=== PATIENT | female | born 1965 | race Caucasian/White ===

== ENCOUNTER 2018-03-12 02:29 | Emergency (ER) | payer MEDICARE ==
[2018-03-12 02:33] VITALS: BP 132/69; PULSE 74; O2SAT 96
[2018-03-12] MEDS ORDERED: THIAMINE 200 MG/2 ML IV ONE (02:39)
[2018-03-12] MEDS ORDERED: Sodium Chloride 0.9% 1000 ML 1,000 ML IV SCH (02:45)
--- NOTE | 2018-03-12 02:46 | ERPHSYRPT ---
- History of Present Illness Time Seen by Provider: 03/12/18 02:40 Source: patient Exam Limitations: no limitations Patient Subjective Stated Complaint: fell and injured right knee, had knee replacement surgery 8 months ago Triage Nursing Assessment: Pt fell at home and landed on her right knee, swollen and bruised, pt has been drinking, hx of bilateral knee replacements, smokes while on oxygen, pulses normal, vitals wnl, rates pain 10/10 Physician History: He 3-year-old white female with history of atherosclerotic coronary artery disease, ID, asthma, bronchitis, COPD, hypothyroidism who has had bilateral knee replacement. She is brought by medics with complaint of right knee pain for 2 hours. Patient states she got up to change her depends and she fell landing on her right knee. Patient is complaining of pain and swelling of her right knee. Patient does admit to drinking 2-1/2 beers tonight. Past medical history includes out of him myocardial infarction, asthma, bronchitis, COPD, hypothyroidism, arthritis, fractures, osteoarthritis, fracture right ankle, cardiac catheter, cardiac stent , orthopedic surgery, right ankle surgery back surgery bilateral knee surgery right ovary and most of the left ovary removed . Social history includes tobacco use and alcohol use. Patient denies illicit drug use. Timing/Duration: today (2 hours prior to arrival) Severity: moderate Modifying Factors: Improves With: nothing Associated Symptoms: No nausea, No vomiting, No abdominal pain, No shortness of breath, No heartburn, No diaphoresis, No cough, No chills, No chest pain, No fever, No headaches, No loss of appetite, No malaise, No rash, No syncope, No seizure, No weakness Allergies/Adverse Reactions: Penicillins Allergy (Verified 03/12/18 02:40) tetanus immune globulin Allergy (Verified 03/12/18 02:40) Home Medications: Gabapentin [Neurontin] 800 mg PO TID 08/04/14 [History] Metoclopramide HCl [Reglan] 10 mg PO TID 08/04/14 [History] Paroxetine HCl [Paxil] 40 mg PO HS 08/04/14 [History] Albuterol Sulfate [Proair Hfa] 8.5 gm IH Q4HPRN PRN 09/22/15 [History] Atenolol 50 mg PO BID 09/22/15 [History] Isosorbide Mononitrate 30 mg [Imdur 30 MG] 60 mg PO DAILY 09/22/15 [History ] Levothyroxine Sodium 75 Mcg [Synthroid 75 Mcg] 75 mcg PO DAILY 09/22/15 [ History] Spironolactone 25 mg [Aldactone 25 MG] 25 mg PO BID 09/22/15 [History] Trazodone HCl [Oleptro ER] 150 mg PO HS 09/22/15 [History] Alendronate Sodium 70 mg [Fosamax 70 MG] 70 mg PO Q7D@0600 03/22/17 [ History] Cyanocobalamin/Folic AC/Vit B6 [Virt-Joseph Forte Tablet] 1 each PO DAILY [History] Furosemide 20 mg [Lasix 20 mg] 20 mg PO DAILY 03/22/17 [History] Omeprazole 20 MG [Prilosec 20 mg] 20 mg PO DAILY 03/22/17 [History] Paroxetine HCl 20 mg [Paxil 20 MG] 20 mg PO DAILY 03/22/17 [History] Simvastatin 40 mg [Zocor 40 mg] 40 mg PO HS 03/22/17 [History] Hydrocodone Bit/Acetaminophen [Laurel 7.5-325 Tablet] 1 each PO [id number] PRN 12/02 [History] Hx Tetanus, Diphtheria Vaccination/Date Given: Yes Hx Influenza Vaccination/Date Given: No Hx Pneumococcal Vaccination/Date Given: No - Review of Systems Constitutional: No Fever, No Chills Eyes: No Symptoms Ears, Nose, & Throat: No Symptoms Respiratory: No Cough, No Dyspnea Cardiac: No Chest Pain, No Edema, No Syncope Abdominal/Gastrointestinal: No Abdominal Pain, No Nausea, No Vomiting, No Diarrhea Genitourinary Symptoms: No Dysuria Musculoskeletal: Other (right knee pain and swell ing) Skin: No Rash Neurological: No Dizziness, No Focal Weakness, No Sensory Changes Psychological: No Symptoms Endocrine: No Symptoms All Other Systems: Reviewed and Negative - Past Medical History Pertinent Past Medical History: Yes Neurological History: No Pertinent History ENT History: No Pertinent History Cardiac History: Myocardial Infarction (ID) Respiratory History: Asthma, Bronchitis, COPD Endocrine Medical History: Hypothyroidism Musculoskeletal History: Arthritis, Fractures, Osteoarthritis GI Medical History: No Pertinent History History: No Pertinent History Psycho-Social History: No Pertinent History Female Reproductive Disorders: No Pertinent History Other Medical History: FX R ANKLE 20+ YEARS AGO - Past Surgical History Past Surgical History: Yes Neuro Surgical History: No Pertinent History Cardiac: Cardiac Catheterization, Cardiac Stent Respiratory: No Pertinent History Gastrointestinal: No Pertinent History Genitourinary: No Pertinent History Musculoskeletal: Orthopedic Surgery Female Surgical History: Other Other Surgical History: Right ankle surgery, Back surgery, right ovary removed and majority of left ovary, both knees replaced - Social History Smoking Status: Current every day smoker How long have you smoked: 36 years Exposure to second hand smoke: No Drug Use: none Patient Lives Alone: No - Nursing Vital Signs Nursing Vital Signs: Initial Vital Signs Temperature 98.2 F 03/12/18 02:30 Pulse Rate 74 03/12/18 02:30 Blood Pressure 132/69 03/12/18 02:30 O2 Sat by Pulse Oximetry 96 03/12/18 02:30 Pain Scale Pain Intensity 10 - Physical Exam General Appearance: other (Well-developed well-developed white female patient alert oriented 3 slow to speak) Eye Exam: PERRL/EOMI, eyes nml inspection Ears, Nose, Throat Exam: normal ENT inspection, TMs normal, pharynx normal, moist mucous membranes Neck Exam: normal inspection, non-tender, supple, full range of motion Respiratory Exam: normal breath sounds, lungs clear, No respiratory distress Cardiovascular Exam: regular rate/rhythm, normal heart sounds, normal peripheral pulses Gastrointestinal/Abdomen Exam: soft, normal bowel sounds, No tenderness, No mass Back Exam: normal inspection, normal range of motion, No CVA tenderness, No vertebral tenderness Extremity Exam: pelvis stable, other (Right knee with moderate amount of swelling posteriorly. Decreased range of motion right knee secondary to pain, right knee tender with palpation anteriorly.), No normal inspection, No normal range of motion SpO2: 96 Oxygen Delivery: Nasal Cannula - Course Nursing assessment & vital signs reviewed: Yes EKG Interpreted by Me: RATE (68 BPM), Sinus Rhythm, Other (ekg: sINUS RHYTHM axisSI/QIII pattern, 68 beats per minute, no acute ST or T wave changes noted) - Radiology Exams Right Knee X-ray Interpretation: Interpreted by me (transverse fracture right distal femur just superior to the knee, proximal fragment anterior to proximal portion of prosthetic portion of femur) Ordered Tests: Active Orders 24 hr Category Date Time Status Accucheck STAT Care 03/12/18 02:39 Active EKG-ER Only STAT Care 03/12/18 02:39 Active IV Insertion STAT Care 03/12/18 02:39 Active Splint STAT Care 03/12/18 03:11 Active KNEE (3 VIEWS) Stat Exams 03/12/18 02:40 Taken ACETAMINOPHEN Stat Lab 03/12/18 02:40 Completed AMYLASE Stat Lab 03/12/18 02:40 Completed BLOOD CULTURE Stat Lab 03/12/18 03:30 Received CBC W DIFF Stat Lab 03/12/18 02:40 Completed CMP Stat Lab 03/12/18 02:40 Completed ETHYL ALCOHOL Stat Lab 03/12/18 02:40 Completed Manual Differential NC Stat Lab 03/12/18 02:40 Completed PROTIME WITH INR Stat Lab 03/12/18 02:40 Completed PTT Stat Lab 03/12/18 02:40 Completed SALICYLATE Stat Lab 03/12/18 02:40 Completed Medication Summary Discontinued Medications Generic Name Dose Route Start Last Admin Trade Name Freq PRN Reason Stop Dose Admin Sodium Chloride 1,000 mls @ 100 mls/hr 03/12/18 02:45 03/12/18 03:22 Sodium Chloride 0.9% 1000 Ml IV 04/11/18 02:44 100 mls/hr .Q10H VANE Administration Potassium Chloride 100 mls @ 50 mls/hr 03/12/18 03:14 03/12/18 03:24 Potassium Chloride 20 Meq In Water 100ml IV 03/12/18 05:13 50 mls/hr STAT ONE Administration Potassium Chloride Confirm 03/12/18 03:19 Potassium Chloride 20 Meq In Water 100ml Administered 03/12/18 03:20 Dose 100 mls @ ud IV .STK-MED ONE Ceftriaxone Sodium/Dextrose 1 g in 50 mls @ 100 mls/hr 03/12/18 03:47 03:52 Rocephin 1 Gm-D5w 50 Ml Bag IV 03/12/18 04:16 100 mls/hr STAT STA Administration Ceftriaxone Sodium/Dextrose Confirm 03/12/18 03:47 Rocephin 1 Gm-D5w 50 Ml Bag Administered 03/12/18 03:48 Dose 1 g in 50 mls @ ud IV .STK-MED ONE Sodium Chloride Confirm 03/12/18 03:19 Sodium Chloride 0.9% 1000 Ml Administered 03/12/18 03:20 Dose 1,000 mls @ ud .ROUTE .STK-MED ONE Morphine Sulfate 4 mg 03/12/18 03:15 03/12/18 03:23 Morphine Sulfate 4 Mg Inj IV 03/12/18 03:16 4 mg STAT ONE Administration Morphine Sulfate Confirm 03/12/18 03:19 Morphine Sulfate 4 Mg Inj Administered 03/12/18 03:20 Dose 4 mg .ROUTE .STK-MED ONE Ondansetron HCl 4 mg 03/12/18 03:15 03/12/18 03:23 Zofran 4 Mg/2 Ml Vial IV 03/12/18 03:16 4 mg STAT ONE Administration Ondansetron HCl Confirm 03/12/18 03:18 Zofran 4 Mg/2 Ml Vial Administered 03/12/18 03:19 Dose 4 mg .ROUTE .STK-MED ONE Potassium Chloride 20 meq 03/12/18 03:47 03/12/18 03:51 Klor Con 10 Meq PO 03/12/18 03:48 20 meq STAT ONE Administration Potassium Chloride Confirm 03/12/18 03:47 Klor Con 10 Meq Administered 03/12/18 03:48 Dose 20 meq PO .STK-MED ONE Thiamine HCl 100 mg 03/12/18 02:39 03/12/18 03:23 Thiamine 200 Mg/2 Ml IV 03/12/18 02:40 100 mg STAT ONE Administration Thiamine HCl Confirm 03/12/18 03:18 Thiamine 200 Mg/2 Ml Administered 03/12/18 03:19 Dose 200 mg .ROUTE .STK-MED ONE Lab/Rad Data: Laboratory Result Diagrams 03/12/18 02:40 03/12/18 02:40 Laboratory Results 03/12/18 03/12/18 03/12/18 Range/Units 02:40 02:40 02:40 WBC 23.8 H (4.0-10.5) K/mm3 RBC 5.82 H (4.1-5.4) M/mm3 Hgb 17.4 H (12.0-16.0) gm/dl Hct 51.6 H (35-47) % MCV 88.7 (78-100) fl MCH 29.8 (26-32) pg MCHC 33.7 (32-36) g/dl RDW 13.7 (11.5-14.0) % Plt Count 352 (150-450) K/mm3 MPV 10.5 H (6-9.5) fl Absolute Granulocytes 20.41 H (1.4-6.9) Segmented Neutrophils 85 H (36.0-66.0) % Lymphocytes (Manual) 11 L (24-44) % Monocytes (Manual) 4 (0.0-12.0) % Platelet Estimate NORMAL (NORMAL) RBC Morphology NORMAL PT 13.4 H (9.95-12.35) SECONDS INR 1.15 (0.8-3.0) APTT 36.3 (25.3-37.0) SECONDS Sodium 130 L (137-145) mmol/L Potassium 2.4 L* (3.5-5.1) mmol/L Chloride 81 L (98-107) mmol/L Carbon Dioxide 34 H (22-30) mmol/L Anion Gap 16.9 H (5-15) MEQ/L BUN 2 L (7-17) mg/dL Creatinine 0.63 (0.52-1.04) mg/dL Estimated GFR > 60.0 ML/MIN Glucose 129 H (74-106) mg/dL Calcium 8.3 L (8.4-10.2) mg/dL Total Bilirubin 0.50 (0.2-1.3) mg/dL AST 15 (14-36) U/L ALT 7 (0-35) U/L Alkaline Phosphatase 131 H (38-126) U/L Serum Total Protein 7.5 (6.3-8.2) g/dL Albumin 3.9 (3.5-5.0) g/dL Amylase < 30 L (30-110) U/L Salicylates < 1.0 L (2-20) mg/dL Acetaminophen < 10 L (10-30) ug/ml Ethyl Alcohol 161 H (0-10) mg/dL - Progress Progress: improved Progress Note: 03/12/18 03:38 This is a 53-year-old white female with history of myocardial infarction, asthma , bronchitis, COPD, hypothyroidism, arthritis, fractures, osteoarthritis Who has had bilateral knee replacements as well as a CABG back surgery and ankle surgery and cardiac stents. She is brought by medics with complaint of pain in her right knee for approximately 2 hours patient states she went to put her depends on and fell forward striking her right knee she arrives with right knee pain that she is not moving her knee secondary to pain she has large amount of edema to the right anterior knee she has good capillary refill to her right toes sensation intact to her right toes her right dorsal pedal and posterior tibial pulses are intact . Patient's vitals appear to be stable patient is somewhat slow when she speaks however she is alert and oriented 3. She has an x-ray of her right knee which shows transverse fracture of the right distal femur just proximal to prosthetic joint the distal end of the femur is displaced anteriorly and overlying the proximal end of the joint prosthesis. Patient does have a blood alcohol level of 161 patient's sodium is 1:30 potassium 2.4 chloride 81 bicarbonate 16.9 BUN to creatinine 0.63 glucose 129. Patient's white count 23.8 hemoglobin 17.4 hematocrit 51.6 platelets 352 Patient's EKG sinus rhythm at 68 bpm axis S1/Q 3 pattern There are no acute ST or T wave changes noted Patient does have pain her blood pressure is stable she is alert and oriented but somewhat slow when she speaks. She did ask for pain medication. I went ahead and ordered morphine 4 mg IV Zofran 4 mg IV she is receiving IV normal saline 100 mL per hour. I've asked the nurses place a second IV site on the patient, K rider has been begun. I talked with Dr. Mcclain at [facility] he has requested that we give patient potassium 20 mEq by mouth with a small amount of water and also to go ahead and give the patient Rocephin 1 g IV. Patient does have a history of penicillin allergy however very low risk for a cross-reactivity with Rocephin. patient is accepted for transfer to [facility] - Departure Time of Disposition: 04:30 Departure Disposition: Transfer ([facility]) Clinical Impression: Hypokalemia, ETOH intoxication Fracture of right femur Qualifiers: Encounter type: initial encounter Femur location: distal Fracture type: closed Fracture morphology: unspecified fracture morphology Qualified Code(s): S72.401A - Unspecified fracture of lower end of right femur, initial encounter for closed fracture Accidental fall Qualifiers: Encounter type: initial encounter Qualified Code(s): W19.XXXA - Unspecified fall, initial encounter Condition: Fair Critical Care Time: No Referrals: TOBI MORAN [Primary Care Provider] -
[2018-03-12 02:47] LABS: Granulocyte Absolute (ANC) 20.41 (1.4-6.9); Hematocrit 51.6 % (35-47); Hemoglobin 17.4 gm/dl (12.0-16.0); Mean Cell Volume 88.7 fl (78-100); Mean Corpuscular Hgb Concent. 33.7 g/dl (32-36); Mean Platelet Volume 10.5 fl (6-9.5); Platelet Count 352 K/mm3 (150-450); Red Blood Count 5.82 M/mm3 (4.1-5.4); Red Cell Distribution Width 13.7 % (11.5-14.0); White Blood Count 23.8 K/mm3 (4.0-10.5)
[2018-03-12 02:57] LABS: Mean Corpuscular Hemoglobin 29.8 pg (26-32)
[2018-03-12 03:07] LABS: ALBUMIN 3.9 g/dL (3.5-5.0); ALKALINE PHOSPHATASE 131 U/L (38-126); AMYLASE < 30 U/L (30-110); ANION GAP 16.9 MEQ/L (5-15); CHLORIDE 81 mmol/L (98-107); Calcium 8.3 mg/dL (8.4-10.2); Carbon Dioxide 34 mmol/L (22-30); Creatinine 1 0.63 mg/dL (0.52-1.04); ETHYL ALCOHOL 161 mg/dL (0-10); Glucose 129 mg/dL (74-106); SGOT/AST 15 U/L (14-36); SGPT/ALT 7 U/L (0-35); SODIUM 130 mmol/L (137-145); Total Protein 7.5 g/dL (6.3-8.2)
[2018-03-12 03:10] LABS: BLOOD UREA NITROGEN 2 mg/dL (7-17)
[2018-03-12 03:11] LABS: ACETAMINOPHEN < 10 ug/ml (10-30); Potassium 2.4 mmol/L (3.5-5.1); SALICYLATE < 1.0 mg/dL (2-20)
[2018-03-12] MEDS ORDERED: POTASSIUM CHLORIDE 20 mEq IN WATER 100ML 100 ML IV ONE ×2 (03:14→03:19)
[2018-03-12] MEDS ORDERED: Zofran 4 MG/2 ML VIAL IV ONE (03:15)
[2018-03-12] MEDS ORDERED: MORPHINE SULFATE 4 MG INJ IV ONE (03:15)
[2018-03-12] MEDS ORDERED: THIAMINE 200 MG/2 ML ONE (03:18)
[2018-03-12] MEDS ORDERED: Zofran 4 MG/2 ML VIAL ONE (03:18)
[2018-03-12] MEDS ORDERED: MORPHINE SULFATE 4 MG INJ ONE (03:19)
[2018-03-12] MEDS ORDERED: Sodium Chloride 0.9% 1000 ML 1,000 ML ONE (03:19)
[2018-03-12] MEDS ORDERED: ROCEPHIN 1 Gm-D5w 50 ml Bag** 1 G/50 ML IVPB IV STA (03:47)
[2018-03-12] MEDS ORDERED: ROCEPHIN 1 Gm-D5w 50 ml Bag** 1 G/50 ML IVPB IV ONE (03:47)
[2018-03-12] MEDS ORDERED: Klor Con 10 MEQ PO ONE ×2 (03:47)
[2018-03-12 04:02] LABS: INR 1.15 (0.8-3.0)
[2018-03-12 04:04] LABS: PTT 36.3 SECONDS (25.3-37.0)
[2018-03-12 04:37] LABS: Lymphocytes 11 % (24-44); Monocyte 4 % (0.0-12.0); Neutrophils 85 % (36.0-66.0); Total Cells Counted 100
[2018-03-12 04:38] LABS: Platelet Estimate NORMAL (NORMAL)
--- NOTE | 2018-03-12 09:37 | XRAY ---
Indication: Pain following fall. Comparison: None 3 views of the right knee demonstrates complete distal femur shaft fracture with bayonet apposition/alignment, hemarthrosis, and soft tissue swelling. Elsewhere osteopenia, old proximal fibula shaft fracture, and total knee arthroplasty.
== END 2018-03-12 04:40 | disposition short-term general hospital (02) ==
LOC: ED 02:29
DX: S72.301A Unspecified fracture of shaft of right femur, initial encounter for closed fracture (principal); E87.6 Hypokalemia; F10.129 Alcohol abuse with intoxication, unspecified; W19.XXXA Unspecified fall, initial encounter; Y92.009 Unspecified place in unspecified non-institutional (private) residence as the place of occurrence of the external cause; Z79.899 Other long term (current) drug therapy
CPT/HCPCS: 29505; 36000; 36415; 73562; 80053; 80307; 82150; 85025; 85610; 85730; 87040; 93005; 96360; 96365; 96367; 96374; 96375; 99285; G0481; J0696; J2270; J2405; J3480; A9270-GY; G0480